=== PATIENT | female | born 1940 | race Caucasian/White ===

== ENCOUNTER → 2023-11-22 09:46 | Outpatient (REF) | payer MEDICARE, OTHER, SELFPAY | LOC: RAD 09:46 | PROVIDERS: ATTENDING PHYSICIAN Physician Assistant; FAMILY PHYSICIAN Internal Medicine | DX: Z13.820 Encounter for screening for osteoporosis (principal); M81.0 Age-related osteoporosis without current pathological fracture | CPT/HCPCS: 77080 ==

== ENCOUNTER → 2023-12-03 14:22 | Outpatient (REF) | payer MEDICARE, OTHER, SELFPAY | LOC: RAD 14:22 | PROVIDERS: ATTENDING PHYSICIAN Physician Assistant | DX: M25.561 Pain in right knee (principal); M17.11 Unilateral primary osteoarthritis, right knee | CPT/HCPCS: 73564 ==

== ENCOUNTER → 2023-12-06 08:57 | Outpatient (REF) | payer MEDICARE, OTHER, SELFPAY | LOC: PAVMRI 08:57 | PROVIDERS: ATTENDING PHYSICIAN Physician Assistant | DX: M25.561 Pain in right knee (principal); G89.29 Other chronic pain; R26.9 Unspecified abnormalities of gait and mobility | CPT/HCPCS: 73721 ==

== ENCOUNTER → 2024-06-02 09:50 | Outpatient (REF) | payer MEDICARE, OTHER, SELFPAY ==
[2024-06-02 12:06] LABS: Blood Urea Nitrogen 33 mg/dl (7-17); Calcium 10.9 mg/dl (8.4-10.2); Carbon Dioxide 25 mmol/L (22-30); Glucose 89 mg/dl (70-99); Potassium 5.5 mmol/L (3.5-5.1); Sodium 138 mmol/L (135-145); eGFR 45.19
[2024-06-02 12:12] LABS: Chloride 100 mmol/L (98-107)
== END ==
LOC: REG 09:50
PROVIDERS: ATTENDING PHYSICIAN Family Medicine; FAMILY PHYSICIAN Physician Assistant
DX: E87.5 Hyperkalemia (principal)
CPT/HCPCS: 36415; 80048

== ENCOUNTER → 2024-06-06 06:49 | Outpatient (REF) | payer MEDICARE, OTHER, SELFPAY ==
[2024-06-06 08:45] LABS: Blood Urea Nitrogen 29 mg/dl (7-17); Calcium 9.9 mg/dl (8.4-10.2); Carbon Dioxide 26 mmol/L (22-30); Chloride 102 mmol/L (98-107); Glucose 93 mg/dl (70-99); Potassium 5.4 mmol/L (3.5-5.1); Sodium 140 mmol/L (135-145); eGFR 45.19
== END ==
LOC: REG 06:49
PROVIDERS: ATTENDING PHYSICIAN Physician Assistant; OTHER PHYSICIAN Internal Medicine Cardiovascular Disease
DX: E87.5 Hyperkalemia (principal)
CPT/HCPCS: 36415; 80048

== ENCOUNTER → 2024-08-05 10:35 | Outpatient (REF) | payer MEDICARE, OTHER, SELFPAY ==
[2024-08-05 11:33] LABS: Osmolality Urine 935 mOsm/kg (300-900)
[2024-08-05 11:43] LABS: Osmolality Serum 304 mOsm/kg (275-300)
[2024-08-05 11:44] LABS: Albumin 5.1 g/dl (3.5-5.0); Blood Urea Nitrogen 29 mg/dl (7-17); Calcium 10.8 mg/dl (8.4-10.2); Carbon Dioxide 27 mmol/L (22-30); Chloride 101 mmol/L (98-107); Glucose 91 mg/dl (70-99); Phosphorus 3.9 mg/dl (2.5-4.5); Potassium 4.6 mmol/L (3.5-5.1); Sodium 140 mmol/L (135-145); eGFR > 60.00
[2024-08-08 09:44] LABS: Aldosterone, Serum 7.1 ng/dL; Aldosterone/Renin Activ Ratio 6.4 ratio (<=25.0); Renin Activity Results 1.1 ng/mL/hr
== END ==
LOC: REG 10:35
PROVIDERS: ATTENDING PHYSICIAN Specialist; FAMILY PHYSICIAN Family Medicine
DX: E87.5 Hyperkalemia (principal)
CPT/HCPCS: 36415; 80069; 82088; 83930; 83935; 84133; 84244

== ENCOUNTER 2024-08-18 15:05 | Inpatient (IN) | payer MEDICARE, OTHER, SELFPAY ==
[2024-08-18 12:55] VITALS: BP 196/60
--- NOTE | 2024-08-18 13:45 | CON.NEURO ---
Consultation
Order
Date of Consultation: 08/18/24
Requesting Provider: Arturo Chi MD
Reason for Consult: Stroke
Neurology Consultation Note.
HPI: This is an 84-year-old RH woman who presented to [facility] on 08/18/2024 with motor deficits, confusion and abnormal MRI
The patient has had left face and leg weakness started around 3:49 AM yesterday morning. She initially felt no different but sent some unusual text messages to family members. Later that day, she experienced fatigue and exhibited unusual behavior,
including forgetting her phone and purse, leaving keys in the ignition, and lights on. In the evening, while going to dinner, her son noticed left-sided facial weakness, which the patient was unaware of. This morning, the patient reported shakiness
and an odd feeling in her left leg. She states she 'didn't feel normal' and knew something was wrong. The patient was evaluated by her primary care physician, who ordered stat CT and blood work. Following these tests, the patient was directed to the
ER.
ER VS: 196/60, 54�48, afebrile.
EKG: Sinus bradycardia at 49, QTc Int : 401 ms
PDMP:Hydrocodone-Acetamin 5-325 Mg 30 tablets filled in on 07/14/2024, 06/19/2024.
Labs: Glucose�100, normal sodium, WBCs, creatinine�1.0
CT head wo contrast-.3 cm right sided subacute lacunar infarct involving the head of the caudate, anterior limb of the internal capsule and lentiform nucleus
The patient states that she has been compliant with aspirin 81 mg 3 times a week. Higher doses caused excessive cutaneous hemorrhages in the past.
PMH: HTN, DLP, OA, MVR, AVR, vitamin D deficiency, BL SNHL
PSH:R TKA multiple brain biopsy, bilateral cataract surgery left knee meniscal repair,
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
FH:CAD
All:PNC, tetanus, high doses of aspirin�subcutaneous hemorrhages
ROS: Constitutional: Negative. Negative for chills, fever and unexpected weight change.
HENT: Positive for hearing impairment
Eyes: Negative. Negative for photophobia, pain and visual disturbance.
Respiratory: Positive for dyspnea on exertion
Cardiovascular: Negative for chest pain, palpitations and leg swelling.
Gastrointestinal: Negative for abdominal pain and vomiting.
Endocrine: Negative. Negative for cold intolerance.
Genitourinary: Negative for dysuria, flank pain and urgency.
Musculoskeletal: Negative for back pain, gait problem, neck pain and neck stiffness.
Skin: Negative for rash.
Allergic/Immunologic: Negative. Negative for immunocompromised state.
Neurological: Positive for confusion, left-sided weakness
Psychiatric/Behavioral: Negative for behavioral problems, confusion and hallucinations.
General: Well developed. In no acute distress.
Cardio: Regular rate and rhythm without murmur. Extremities are without cyanosis or edema.
Neuro:
Mental Status: Alert, oriented to person, place, and date. Impaired attention and comprehension (partially due to poor hearing) Follows complex requests across the midline. Comprehension, naming, and repetition intact. Slow speech
Cranial Nerves: Pupils are equally round, surgical. EOMs full. Visual ramirez full to confrontation. No ptosis. No nystagmus. Left facial upper motor neuron weakness. Poor hearing AU. The palate elevated well. SCMs and traps 5/5. Tongue
midline. No dysarthria.
Motor: Normal bulk and tone. No pronator or arm drift. Strength 5/5 throughout, except for left triceps 4 out of 5, iliopsoas�5- out of 5. No clonus.
Reflexes: Positive grasp bilaterally.
Sensory: No extinction to DSS
Coordination: No dysmetria or tremor.
Gait: deferred
Assessment and Plan:
I. Acute right caudate, IC, lentiform nucleus stroke. Likely etiology�vascular microangiopathy from aging, hypertension.
II. Hypertensive emergency
III. Vascular encephalopathy.
-Continue Telemetry monitoring
-Aspiration precautions
-Cautious lowering of BP by approximately 15 % during the first 24 hours is SBP >220 mmHg or diastolic blood pressure >120 mmHg
-Restart antihypertensive medications during if BP>140/90 mmHg who are neurologically stable in 24 to 48 hours after stroke onset
-Switch aspirin to Plavix 75 mg once a day
-TTE
-Lipitor 40 mg QHS.
-Please check HbA1C, LDL.
-PT.
-DVT prophylaxis.
I personally reviewed all radiology and labs along with past medical records pertinent to current medical problems. Total time spent in patient care is 60 minutes.
Thank you for allowing us to participate in the care of this patient. We will continue to follow. Please do not hesitate to contact us with any questions or concerns.
Subjective/Objective
Subjective Data
Date of Service: August 18, 2024
Objective Data
Vital Signs
Temp Pulse Resp BP Pulse Ox
36.6 C 54 18 196/60 99
08/18/24 12:55 08/18/24 12:55 08/18/24 12:55 08/18/24 12:55 08/18/24 12:55
Patient Allergies
Penicillins Allergy (Unknown, Verified 08/18/24 13:03)
Rash
Vital Signs and Labs
-
Vital Signs and Labs:
Vital Signs
Temp Pulse Resp BP Pulse Ox
36.6 C 63 14 175/80 99
08/18/24 12:55 08/18/24 15:59 08/18/24 15:59 08/18/24 14:18 08/18/24 15:15
Lab Results
08/18/24 13:32
08/18/24 13:32
PT 12.8 Sec (11.4-14.6) 08/18/24 14:47
INR 0.93 08/18/24 14:47
APTT 30.6 Sec (23.4-35.0) 08/18/24 14:47
Sodium Cancelled 08/18/24 13:32
Potassium Cancelled 08/18/24 13:32
BUN Cancelled 08/18/24 13:32
Glucose Cancelled 08/18/24 13:32
Calcium Cancelled 08/18/24 13:32
Home Medications
-
Home Medications
Linseed Capsules 1 cap PO DAILY 08/18/24
acetaminophen 325 mg tablet (Tylenol) 650 mg PO BID 08/18/24
aspirin 81 mg tablet,delayed release 81 mg PO Q48H 08/18/24
cholecalciferol (vitamin D3) 25 mcg (1,000 unit) tablet (Vitamin D3) 25 mcg PO DAILY 08/18/24
hydrocodone 5 mg-acetaminophen 325 mg tablet 0.5 tab PO DAILYPRN PRN 1 hour prior to pt therapy 08/18/24
omega 3-tlb-dzs-fish oil 1,000 mg (120 mg-180 mg) capsule (Fish Oil) 1 cap PO DAILY 08/18/24
therapeutic multivitamin 1 tab PO DAILY 08/18/24
[2024-08-18] MEDS: ASPIRIN 325 MG PO (13:55)
[2024-08-18] MEDS: PLAVIX 75 MG PO (13:55)
--- NOTE | 2024-08-18 14:00 | ED.CVA ---
History of Present Illness
General
Chief Complaint: CVA/TIA Symptoms
Source: patient, family and physician
Time Seen by Provider: 08/18/24 13:31
Onset of Stroke Symptoms
Onset of symptoms known: No
Date of onset of symptoms: 08/16/24
Time pt last seen normal is known: No
History of Present Illness
History of Present Illness:
84-year-old female with past medical history of mild hypertension managed with lifestyle modifications presents to the emergency department from outpatient CT scan after patient was found to have a 3.3 cm subacute nonhemorrhagic lacunar infarct on
the right, had the CT scan done because family had noticed late Sunday morning into Sunday patient started with confusion and then Sunday noticed a left-sided facial droop and at the primary care today felt as if the left upper and left lower
extremity were little bit weaker compared to the right. Patient states that she was unaware of any of the symptoms. Family states that around 3 AM multiple family members had noticed a text with what appeared to be abnormal speech send by the
patient who had no recollection of sending the text message and patient seemed very forgetful on Sunday morning that is not typical of her usual self. Family history was noted for maternal grandmother having a stroke. Social history
noncontributory. Patient does live with her son.
Past History
Past History
ED Past Medical History: Valvular disease
ED Past Surgical History: Cholecystectomy and Orthopedic
Social History
Tobacco: Non-smoker
Alcohol: None
Drug: None
Personal:
Living: with family
Review of Systems
Review of Systems
All Other Systems: ROS reviewed and negative except as documented in HPI and ROS
Phy Exam
Physical Exam
Physical Exam:
GENERAL: Alert , in no apparent distress
EYE: clear conjunctiva, pupils 3 mm bilateral, no visual field cuts, gross vision intact
NECK: Supple, no bruit
ENT: o/p clr, mmm.
CARDIAC: Regular rate and rhythm, systolic murmur left sternal border.
LUNGS: Clear breath sounds bilaterally, no acute respiratory distress, no wheezes/rales/rhonchi
ABDOMEN: Soft, without focal tenderness, no r/g, no cvat
NEUROLOGICAL: Alert and oriented, mild left-sided facial droop with mild dysarthria, 4+ out of 5 left upper and lower extremity strength compared to the right, no ataxia
SKIN: Warm and dry, skin intact.
MUSCULOSKELETAL: No edema, well perfused.
PSYCH: Normal and appropriate interaction.
Scores
NIH Stroke Score
Level of Consciousness: 0 - Alert
LOC Questions: 0-Answers both correctly
LOC Commands: 0-Performs both correctly
Best Horizontal Gaze: 0-Normal
Visual Lambert: 0=Normal, no visual loss
Facial Palsy: 1=Minor paralysis
Motor - Right Arm: 0=No drift 10 seconds
Motor - Left Arm: 0=No drift 10 seconds
Motor - Right Le-No drift 5 seconds
Motor - Left Le-No drift 5 seconds
Limb Ataxia: 0-Absent
Sensation: 0-Normal
Best Language: 1-Mild aphasia
Dysarthria: 0-Normal
Extinction and Inattention: 0-No abnormality
Total Score:: 2
Thrombolytic Contraindication
Inclusion and Exclusion criteria reviewed: Yes
Reasons for NON-Tx with Thrombolytics ABSOLUTE Exclusions: Greater than 4.5 hrs from onset of sxs
Course
Orders/Labs/Results
Orders:
Orders
08/18/24 13:33
Electrocardiogram (*1) Stat
Reason for Study: Other
Other Reason for Exam: neuro symptoms
EKG- Treatment ONCE
08/18/24 13:36
CT Head & Neck Angio W/wo IV Urgent
Comment:
Reason For Exam: LUE/LLE weakness, left facial droop
Aspirin 325 mg PO NOW STA
Clopidogrel Bisulfate [Plavix] 75 mg PO NOW STA
08/18/24 14:22
Admit/Transfer Patient As Directed
Co-Sign Provider:
Level of Care: Inpatient admission
Assign to:: Telemetry
Physician / Group: [email or web address]
Diagnosis: Subacute nonhemorrhagic lacunar infarct CVA @ Rt Basal ganglia
Reason for Telemetry: CVA/TIA
Date to Stop Telemetry: 08/21/24
Time to Stop Telemetry: 11:00
Reason for Hospitalization: Subacute nonhemorrhagic lacunar infarct CVA @ Rt Basal ganglia
Expected length of stay greater than two midnights?: Yes
ELOS- Estimated Length of Stay in days: 3
I certify the patient meets the requirements for IP care: Yes
08/18/24 14:23
Code Status As Directed
Resuscitation Status: Full Code
08/18/24 14:47
PTT Urgent
Prothrombin Time Urgent
Troponin I Urgent
08/21/24 11:00
DC Protocol for Telemetry ONCE
08/18/24 13:32
08/18/24 13:32
Vital Signs
Initial and Last Documented VS:
Initial Vital Signs
Temp Pulse Resp BP Pulse Ox
97.8 F 54 18 196/60 99
08/18/24 12:55 08/18/24 12:55 08/18/24 12:55 08/18/24 12:55 08/18/24 12:55
Last Documented Vital Signs
Temp Pulse Resp BP Pulse Ox
97.8 F 50 16 175/80 95
08/18/24 12:55 08/18/24 14:15 08/18/24 14:15 08/18/24 14:18 08/18/24 14:54
MDM/Problems Addressed
Differential Diagnosis Includes:
CVA, hypertensive urgency/emergency, electrolyte derangement
MDM/Problems Addressed:
84-year-old female being sent to the emergency department from outpatient CT scan after being found to have a lacunar infarct. Symptoms started at the 30 hours ago. Patient is not a tPA/TNK candidate. Will discuss case with neurology. Plan for
aspirin and Plavix. Labs ordered as above. Plan for admission
Chronic conditions affecting care: HTN
*Radiology
Radiology exam reviewed: radiology read reviewed
*Pulse Oximetry
Patient hypoxic: no
*Photographic Supervisor Interpretation
Rate: normal
Rhythm: sinus
*Critical Care Note
Total Time (30-74mins, 75-104mins- exclusive of procedures): Not Applicable
Data Reviewed
Review of Other/Old Records Reveals: Records and Radiology Studies
Patient Management
Discussion with other providers: Hospitalist and Manager Statistical Programming
Escalation/DeEscalation of care consider admission/obs:
Case discussed with neurology who requests CTA of the head and neck to be ordered. Agree with plan for 325mg of aspirin and 75 mg of Plavix. Hospitalist team is also aware and accepts for continued evaluation and treatment.
ED Attending Note
-
Portions of this chart may have been created with voice recognition software.� Occasional wrong word or��sound alike� substitutions may have occurred due to the inherent limitations of voice recognition software.
Discharge Plan
Departure
Patient Disposition: Admit
Date of Disposition: 08/18/24
Time of Disposition: 14:00
Presentation/result/management discussed w/ accepting MD/DO: Hospitalist
Discharge Problem:
Acute cerebrovascular accident (CVA)
Interventions
Interventions:
*Risk Screen - Suicide Last Done: 08/18/24 14:48
*General Assessment Last Done: 08/18/24 14:48
*Neglect/Abuse Screening Last Done: 08/18/24 14:50
*ED COVID-19 Vaccine History Last Done: 08/18/24 14:48
ED- Pulmonary Assessment Last Done: 08/18/24 14:54
ED- Neurological Assessment Last Done: 08/18/24 14:52
ED- Cardiac Assessment Last Done: 08/18/24 14:42
ED Swallowing Screen Last Done: 08/18/24 14:42
--- NOTE | 2024-08-18 14:16 | HPS.HSE ---
Family Physician
-
Family Physician: Lucie Caro
Chief Complaint
-
woke up confused and Lt facia droop
History of Present Illness
84F No prior admission to woke up yesterday morning with confusion. Also noted Lt facial droop
OP HCT showed Rt BG non hemorrhagic stroke
Sent to ER for further w/u
Noted BP 195/60 upon arrival
Initiated ASA and Plavix at ER
S/P Rt TKA in Jun 2024
Currently on baby ASA since
Progressibg well with OP Rehab
ROS
No BLACK
Medical History
Past Medical History
Past Medical History: Reports Other
Past Surgical History: Reports Other
Social History
Unable to obtain full social history at this time due to: Other
Tobacco: Other
Family History
Family History: Not pertinent
Allergies / Home Medications
Allergies reflects when Allergies were last updated in [facility].
Home Medications with original date entered in [facility]
Allergy/Medication List:
Allergies
Allergy/AdvReac Type Severity Reaction Status Date / Time
Penicillins Allergy Unknown Rash Verified 08/18/24 13:03
If medication reconciliation has not been performed, why?: Medication List N/A
Review of Systems
-
Constitutional: Reports No Symptoms
EENT: Reports No Symptoms
Respiratory: Reports No Symptoms
Cardiac: Reports No Symptoms
Abdomen/GI: Reports No Symptoms
: Reports No Symptoms
Musculoskeletal: Reports No Symptoms
Skin: Reports No Symptoms
Neurological: Reports See HPI
Endocrine: Reports No Symptoms
Hematologic/Lymphatic: Reports No Symptoms
Psych: Reports No Symptoms
Physical Exam
Vital Signs
Vital Signs
Temp Pulse Resp BP Pulse Ox
97.8 F 54 18 196/60 99
08/18/24 12:55 08/18/24 12:55 08/18/24 12:55 08/18/24 12:55 08/18/24 12:55
Physical Exam
General: Well Developed, Well Nourished and No Apparent Distress
HEENT: NormoCephalic, Moist mucous membranes and Atraumatic
Respiratory: Clear
Cardiac: S1/S2 and Regular Rhythm; No Murmur or Rub
GI: Soft, Non Tender, Non Distended and Normal Bowel Sounds; No Organomegaly
Rectal: Deferred by Provider
Musculoskeletal: No Clubbing, No Cyanosis and No Edema
Skin: No Rash
Neuro: Nonfocal/grossly intact
Data Reviewed
-
CT Scan: Report Reviewed by me
Impression/Plan
-
Reviewed VS: afebrile, BP 195/60 HR 55
Data: pending
EKG: pending
Outpatient HCT:
3.3 cm right sided subacute nonhemorrhagic lacunar infarct involving the head of the caudate, anterior limb of the internal capsule and lentiform nucleus on the right.
Pending H & N CTA
No prior hospitalist admission:
ASSESSMENT & PLAN
Pending Rx reconciliation
Subacute subacute nonhemorrhagic lacunar infarct CVA @ Rt Basal ganglia
Asso with acute confusional state AMS
- out of TPA window due to onset was likely late Sunday night/Sunday morning.
- pending CTA head/neck and starting ASA/Plavix.
- ASA/Plavix
- Start atorvastatin 40 qpm
- EKG
- ECHO in AM
- CVA evaluation
- Brain MRI
- Neuro consulted
Permissive HTN ( SBP 185, DBP 110) due to acute /SA stroke
- Of note. Normally manual BP measurement is more accurate in her case per son
- To measure BP manually
- add IV Hydralazine 10mg q6h prn for SBP > 185, DBP > 110
S/P Rt TKA in Jun 2024
Currently on baby ASA since
- Progressing well with OP Rehab
DVT Px: SCD
Code: Full code
IP TLM
[2024-08-18 14:18] VITALS: BP 175/80
[2024-08-18 15:14] LABS: APTT 30.6 Sec (23.4-35.0); INR 0.93; PT 12.8 Sec (11.4-14.6)
[2024-08-18 15:30] LABS: Troponin I < 0.012 ng/ml
[2024-08-18] MEDS: LIPITOR 40 MG PO (18:26)
[2024-08-18 19:25] VITALS: BMI 27.4
[2024-08-18 23:46] VITALS: BP 162/58
[2024-08-19] VITALS (8 sets, daily range): BP systolic 149–170; BP diastolic 44–57; PULSE 51; O2SAT 99
[2024-08-19 06:27] LABS: Hematocrit 33.7 % (37.0-47.0); Hemoglobin 11.1 g/dL (12.0-16.0); Mean Corp Hgb Conc. 32.9 g/dL (33.0-37.0); Mean Corpuscular Hgb 30.3 pg (27.0-31.0); Mean Corpuscular Volume 92.1 fL (81.0-99.0); Mean Platelet Volume 10.1 fL (7.4-10.4); Platelet Count 225 10^3/uL (130-400); Red Blood Cell Count 3.66 10^6/uL (4.20-5.40); Red Cell Dist. Width 12.9 % (11.5-14.5); White Blood Cell Count 5.3 10^3/uL (4.8-10.8)
[2024-08-19 06:57] LABS: ALT (SGPT) 15 U/L (0-35); AST (SGOT) 22 U/L (14-36); Albumin 3.6 g/dl (3.5-5.0); Alkaline Phosphatase 50 U/L (38-126); Blood Urea Nitrogen 34 mg/dl (7-17); Calcium 9.6 mg/dl (8.4-10.2); Carbon Dioxide 25 mmol/L (22-30); Chloride 106 mmol/L (98-107); Estimated Creatinine Clearance 34 ml/min; Glucose 95 mg/dl (70-99); HDL Cholesterol 46 mg/dl; LDL Cholesterol, Calculated 93 mg/dl; Potassium 4.6 mmol/L (3.5-5.1); Sodium 138 mmol/L (135-145); Total Bilirubin 0.6 mg/dl (0.2-1.3); Total Cholesterol 157 mg/dl (50-199); Total Protein 5.8 g/dl (6.3-8.2); Triglyceride 94 mg/dl (10-149); Very Low Density Lipoprotein 18 mg/dl (0-30); eGFR > 60.00
--- NOTE | 2024-08-19 08:04 | W.PN.HOSP.TC ---
Today's Communication/Plan
-
cont Plavix as per Neuro
Blood pressure control
Hydralazine prn
Low dose Amlodipine with holding parameters started
PT/OT
statin
Assessment / Plan
Assessment / Plan
Physical Exam
General: Well Developed, Well Nourished and No Apparent Distress
HEENT: NormoCephalic, Moist mucous membranes and Atraumatic
Respiratory: Clear
Cardiac: S1/S2 and Regular Rhythm; No Murmur or Rub
GI: Soft, Non Tender, Non Distended and Normal Bowel Sounds; No Organomegaly
Musculoskeletal: No Clubbing, No Cyanosis and No Edema
Skin: No Rash
Neuro: AOx3. Visible left sided facial droop, mild. Intact immediate recall and delayed recall. Finger to nose and spangler to heel tests wnl.
84F Rt TKA Jun 2024 HTN here for stroke evaluation/treatment
Subacute subacute nonhemorrhagic lacunar infarct CVA @ Rt Basal ganglia
- out of TPA window
- CT head appreciated 3.3 cm right sided subacute nonhemorrhagic lacunar infarct involving the head of the caudate, anterior limb of the internal capsule and lentiform nucleus on the right
- CTA head/neck appreciated no significant carotid stenosis b/l
- empirically started on ASA/Plavix switched to Plavix monotherapy as per neuro d/t concern ASA intolerance
- Start atorvastatin 40 qpm, cont
- ECHO appreciated EF 60-65% Stage II diastolic dysfunction
Brain MRI appreciated
-3.1 cm acute ischemic infarct rt caudate nucleus, rt internal capsule, and right basal ganglia
-small chronic infarcts both cerebellar hemispheres
Neuro consult appreciated
HTN
-completed permissive HTN
-per patient, she was previously on lisinopril since discontinued due to Hyperkalemia
-started low dose Amlodipine 2.5 mg BID w/ holding parameters
-cont hydralazine IV prn (parameters adjusted for tighter blood pressure control following completion permissive htn)
S/P Rt TKA in Jun 2024
DVT Px: SCD
Code: Full code
IP TLM
Discussed with patient and patient's son Jamarcus
I spent a total of 50 minutes with the patient or on the floor. More than 50% of this time involved counseling and coordination of care.
Anticipated Discharge: Within 24 hours
Subjective/Interval History
-
Date of Service: August 19, 2024
No acute distress sitting up comfortably in bed. AOx3 conversant coherent no significant aphasia noted in conversation. Mild left facial droop present.
Objective Data
-
Labs:
Laboratory Results
08/18/24 08/19/24
22:30 05:35
WBC 5.3
Hgb 11.1 L
Hct 33.7 L
Plt Count 225
Sodium Cancelled 138
Potassium Cancelled 4.6
Chloride Cancelled 106
Carbon Dioxide Cancelled 25
BUN Cancelled 34 H
Creatinine Cancelled 0.9
Glucose Cancelled 95
Calcium Cancelled 9.6
Total Bilirubin Cancelled 0.6
AST Cancelled 22
ALT Cancelled 15
Alkaline Phosphatase Cancelled 50
Vital Signs:
Vital Signs
Temp Pulse Resp BP Pulse Ox
97.6 F 47 16 158/52 96
08/19/24 04:50 08/19/24 04:50 08/19/24 04:50 08/19/24 04:50 08/19/24 04:50
[2024-08-19] MEDS: LOW STRENGTH ASPIRIN 81 MG PO (10:06)
[2024-08-19] MEDS: PLAVIX 75 MG PO (10:06)
[2024-08-19 10:25] LABS: Glycohemoglobin (HgbA1c) 4.9 % (4.0-5.6)
--- NOTE | 2024-08-19 12:39 | W.PN.NEURO.1 ---
Today's Communication / Plan
-
.
Subjective/Objective
Subjective Data
Date of Service: August 19, 2024
Neurology follow-up note.
Ms. Farmer reports no complaints. She has been mildly hypertensive and afebrile. No new symptoms since admission.
TTE-was reportedly done in the morning, report is pending.
LDL 93
PMH: HTN, DLP, OA, MVR, AVR, vitamin D deficiency, BL SNHL
PSH:R TKA multiple brain biopsy, bilateral cataract surgery left knee meniscal repair,
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
FH:CAD
All:PNC, tetanus, high doses of aspirin�subcutaneous hemorrhages
ROS: Constitutional: Negative. Negative for chills, fever and unexpected weight change.
HENT: Positive for hearing impairment
Eyes: Negative. Negative for photophobia, pain and visual disturbance.
Respiratory: Positive for dyspnea on exertion
Cardiovascular: Negative for chest pain, palpitations and leg swelling.
Gastrointestinal: Negative for abdominal pain and vomiting.
Endocrine: Negative. Negative for cold intolerance.
Genitourinary: Negative for dysuria, flank pain and urgency.
Musculoskeletal: Negative for back pain, gait problem, neck pain and neck stiffness.
Skin: Negative for rash.
Allergic/Immunologic: Negative. Negative for immunocompromised state.
Neurological: Positive for confusion, left-sided weakness
Psychiatric/Behavioral: Negative for behavioral problems, confusion and hallucinations.
General: Well developed. In no acute distress.
Cardio: Regular rate and rhythm without murmur. Extremities are without cyanosis or edema.
Neuro:
Mental Status: Alert, oriented to person, place, month, year, not to date. Impaired attention and comprehension (partially due to poor hearing) Follows complex requests across the midline. Comprehension, naming, and repetition intact. Slow speech
Cranial Nerves: Pupils are equally round, surgical. EOMs full. Visual ramirez full to confrontation. No ptosis. No nystagmus. Left facial upper motor neuron weakness. Poor hearing AU. The palate elevated well. SCMs and traps 5/5. Tongue
midline. No dysarthria.
Motor: Normal bulk and tone. No pronator or arm drift. Strength 5/5 throughout, except for left triceps 4 out of 5, iliopsoas�5- out of 5. No clonus.
Reflexes: Positive grasp bilaterally.
Sensory: No extinction to DSS
Coordination: No dysmetria or tremor.
Gait: deferred
Assessment and Plan:
I. Acute right caudate, IC, lentiform nucleus stroke. Likely etiology�vascular microangiopathy from aging, hypertension.
II. Hypertensive emergency
III. Vascular encephalopathy.
-Continue Telemetry monitoring
-Blood pressure goal�normotension
-Continue Plavix 75 mg once a day with close platelet monitoring
-Will follow brain MRI and TTE results
-Continue Lipitor 40 mg QHS.
-No driving until cleared by neurology
-PT.
-DVT prophylaxis.
-Outpatient neurology follow-up
-The case was discussed with patient's son
I personally reviewed all radiology and labs along with past medical records pertinent to current medical problems. Total time spent in patient care is 35 minutes.
Thank you for allowing us to participate in the care of this patient. Please do not hesitate to contact us with any questions or concerns.
Objective Data
Vital Signs
Temp Pulse Resp BP Pulse Ox
36.6 C 50 18 164/45 100
08/19/24 08:11 08/19/24 08:11 08/19/24 08:11 08/19/24 08:11 08/19/24 08:11
Lab Results
08/19/24 05:35
08/19/24 05:35
PT 12.8 Sec (11.4-14.6) 08/18/24 14:47
INR 0.93 08/18/24 14:47
APTT 30.6 Sec (23.4-35.0) 08/18/24 14:47
Sodium 138 mmol/L (135-145) 08/19/24 05:35
Potassium 4.6 mmol/L (3.5-5.1) 08/19/24 05:35
BUN 34 mg/dl (7-17) H 08/19/24 05:35
Glucose 95 mg/dl (70-99) 08/19/24 05:35
Calcium 9.6 mg/dl (8.4-10.2) 08/19/24 05:35
LDL Cholesterol, Calc 93 mg/dl 08/19/24 05:35
Patient Allergies
Penicillins Allergy (Verified 08/18/24 16:51)
Rash
Vital Signs and Labs
-
Vital Signs and Labs:
Vital Signs
Temp Pulse Resp BP Pulse Ox
36.6 C 50 18 164/45 100
08/19/24 08:11 08/19/24 08:11 08/19/24 08:11 08/19/24 08:11 08/19/24 08:11
Lab Results
08/19/24 05:35
08/19/24 05:35
PT 12.8 Sec (11.4-14.6) 08/18/24 14:47
INR 0.93 08/18/24 14:47
APTT 30.6 Sec (23.4-35.0) 08/18/24 14:47
Sodium 138 mmol/L (135-145) 08/19/24 05:35
Potassium 4.6 mmol/L (3.5-5.1) 08/19/24 05:35
BUN 34 mg/dl (7-17) H 08/19/24 05:35
Glucose 95 mg/dl (70-99) 08/19/24 05:35
Calcium 9.6 mg/dl (8.4-10.2) 08/19/24 05:35
LDL Cholesterol, Calc 93 mg/dl 08/19/24 05:35
Medications
-
Medications:
Generic Name Dose Route Start Last Admin
Trade Name Freq PRN Reason Stop Dose Admin
Acetaminophen 650 mg 08/18/24 19:44
Acetaminophen 650 Mg Rectal Suppository RECTAL 09/15/24 19:43
Q4HPRN PRN
BLACK, mild pain, or temp >100.4F
Acetaminophen 650 mg 08/18/24 19:44
Acetaminophen 325 Mg Tablet PO 09/15/24 19:43
Q4HPRN PRN
BLACK, mild pain, or temp >100.4F
Aspirin 81 mg 08/19/24 08:00 08/19/24 10:06
Aspirin 81 Mg Chewable Tablet PO 09/16/24 07:59 81 mg
DAILY GREGG Administration
Atorvastatin Calcium 40 mg 08/18/24 18:00 08/18/24 18:26
Atorvastatin (Lipitor) 40 Mg Tablet PO 09/15/24 17:59 40 mg
QPM GREGG Administration
Clopidogrel Bisulfate 75 mg 08/19/24 08:00 08/19/24 10:06
Clopidogrel 75 Mg Tablet PO 09/16/24 07:59 75 mg
DAILY GREGG Administration
Hydralazine HCl 10 mg 08/18/24 19:44
Hydralazine 20 Mg/Ml Vial IV 09/15/24 19:43
Q6HPRN PRN
SBP > 185, DBP > 110
Sodium Chloride 0 flush 08/18/24 17:00
Sodium Chloride 0.9% (Flush) Syringe IV 09/15/24 16:59
PER PROTOCOL GREGG
Home Medications
-
Home Medications
Linseed Capsules 1 cap PO DAILY 08/18/24
acetaminophen 325 mg tablet (Tylenol) 650 mg PO BID 08/18/24
aspirin 81 mg tablet,delayed release 81 mg PO Q48H 08/18/24
cholecalciferol (vitamin D3) 25 mcg (1,000 unit) tablet (Vitamin D3) 25 mcg PO DAILY 08/18/24
hydrocodone 5 mg-acetaminophen 325 mg tablet 0.5 tab PO DAILYPRN PRN 1 hour prior to pt therapy 08/18/24
omega 2-hre-tgd-fish oil 1,000 mg (120 mg-180 mg) capsule (Fish Oil) 1 cap PO DAILY 08/18/24
therapeutic multivitamin 1 tab PO DAILY 08/18/24
--- NOTE | 2024-08-19 13:37 | PTOTSP ---
ST Acute Care Evaluations
Pt currently presents with clinical signs of oral, pharyngeal, and esophageal phases that are WFL for PO intake. No overt s/s of penetration or aspiration observed at bedside.
Pt currently presents with moderate cognitive linguistic deficits as evidenced by her performance on the MOCA (total score = 14/30). Pt exhibits relative strengths in the areas of naming, abstraction, and orientation. Pt's areas of deficit/need of
support include visuospatial/executive functioning (2/5), attention (1/6), language (1/3), and delayed recall (0/5).
Recommendations:
- Continue with regular solids, thin liquids, meds as tolerated. No skilled dysphagia services warranted at this time.
- SUPERVISOR PAPER TESTING to continue to provide cognitive linguistic tx while admitted.
- Pt would benefit from continued cognitive linguistic tx upon d/c at next level of care (home health or OP).
--- NOTE | 2024-08-19 16:36 | CM ---
Patient seen bedside with son,
Patient lives with son in the in law suite in a 2 story home.
3 steps to enter.
Patient independent prior to admission.
Has equipment in the home, cane, RW and shower chair.
Patient seen by PT, recommendation is for home care.
PCP: Dr Caro
Pharmacy: [facility]
Plan: home with VN, son will transport.
[2024-08-19] MEDS: LIPITOR 40 MG PO (17:46)
--- NOTE | 2024-08-19 18:00 | PTCARENOTE ---
Gave patient stroke packet. Went over packet with patient and patient's son.
[2024-08-20] VITALS (7 sets, daily range): BP systolic 145–178; BP diastolic 41–72; PULSE 49–51; O2SAT 98; BMI 28.4
[2024-08-20] MEDS: TYLENOL 650 MG PO ×3 (00:46→23:41)
--- NOTE | 2024-08-20 02:40 | DOWNTIME ---
There was a [employer] Client Directory Clerk Downtime on 08/20/2024 from 0100 to 08/20/2023 at 0235 . Downtime documentation of patient's care, including medication administrations, has been reconciled in the electronic record per guidelines. Refer to the
patient's paper chart under the miscellaneous tab to see printed paper medication records and downtime forms.
--- NOTE | 2024-08-20 06:52 | W.PN.HOSP.TC ---
Today's Communication/Plan
-
Blood pressure Control
Automatic Blood Pressure readings to be repeated manually before use prn Hydralazine
cont Amlodipine with holding parameters
PT/OT
likely discharge tomorrow home with home services pending improvement in blood pressure control
Assessment / Plan
Assessment / Plan
Physical Exam
General: Well Developed, Well Nourished and No Apparent Distress
HEENT: NormoCephalic, Moist mucous membranes and Atraumatic
Respiratory: Clear
Cardiac: S1/S2 and Regular Rhythm; No Murmur or Rub
GI: Soft, Non Tender, Non Distended and Normal Bowel Sounds; No Organomegaly
Musculoskeletal: No Clubbing, No Cyanosis and No Edema
Skin: No Rash
Neuro: AOx3. Visible left sided facial droop, mild. Intact immediate recall and delayed recall. Finger to nose and spangler to heel tests wnl.
84F Rt TKA Jun 2024 HTN here for stroke evaluation/treatment
Subacute subacute nonhemorrhagic lacunar infarct CVA @ Rt Basal ganglia
- out of TPA window
- CT head appreciated 3.3 cm right sided subacute nonhemorrhagic lacunar infarct involving the head of the caudate, anterior limb of the internal capsule and lentiform nucleus on the right
- CTA head/neck appreciated no significant carotid stenosis b/l
- empirically started on ASA/Plavix switched to Plavix monotherapy as per neuro d/t concern ASA intolerance
- Start atorvastatin 40 qpm, cont
- ECHO appreciated EF 60-65% Stage II diastolic dysfunction
Brain MRI appreciated
-3.1 cm acute ischemic infarct rt caudate nucleus, rt internal capsule, and right basal ganglia
-small chronic infarcts both cerebellar hemispheres
Neuro consult appreciated
HTN
-completed permissive HTN
-per patient, she was previously on lisinopril since discontinued due to Hyperkalemia
-started low dose Amlodipine 2.5 mg BID w/ holding parameters, titrated up to 5 mg daily
-cont hydralazine IV prn (parameters adjusted for tighter blood pressure control following completion permissive htn)
-pressures to be repeated manually (if initial measurement was automatic) before using hydralazine
S/P Rt TKA in Jun 2024
DVT Px: SCD
Code: Full code
IP TLM
Likely discharge tomorrow home with home services pending improvement in blood pressure control
Discussed with patient and patient's son Jamarcus
I spent a total of 40 minutes with the patient or on the floor. More than 50% of this time involved counseling and coordination of care.
Anticipated Discharge: Within 24 hours
Subjective/Interval History
-
Date of Service: August 20, 2024
No acute distress sitting up comfortably in chair. Overall reports feeling well. Denies new acute issues at this time, including headache lightheadedness dizziness.
Objective Data
-
Vital Signs:
Vital Signs
Temp Pulse Resp BP Pulse Ox
98 F 47 16 148/44 95
08/20/24 03:32 08/20/24 03:32 08/20/24 03:32 08/20/24 03:32 08/20/24 03:32
I&O
08/18/24 08/19/24 08/20/24
06:59 06:59 06:59
Intake Total 1200 / 1200
Balance 1200 / 1200
[2024-08-20] MEDS: NORVASC 2.5 MG PO ×2 (08:52→19:30)
[2024-08-20] MEDS: PLAVIX 75 MG PO (08:52)
[2024-08-20] MEDS: APRESOLINE 10 MG IV (09:55)
[2024-08-20] MEDS: LIPITOR 40 MG PO (17:33)
[2024-08-21 02:55] VITALS: BP 130/42
--- NOTE | 2024-08-21 04:32 | PTCARENOTE ---
This RN called and gave report to Leonardo IBARRA on . All questions answered at this time. Patient to be transported in bed with belongings and chart.
--- NOTE | 2024-08-21 05:00 | TRANSFER ---
Pt transferred from 1 acute to 4[facility]. VSS, pt is AAOx3, bed alarm in place d/t high fall risk. NIH 2 on transfer. Bed in lowest position, call galeano within reach.
[2024-08-21 05:05] VITALS: BP 157/47
[2024-08-21 07:46] VITALS: BP 149/52
--- NOTE | 2024-08-21 07:59 | W.PN.HOSP.TC ---
Addendum entered and electronically signed by Angie Blanco MD 08/22/24 08:29:
cytotoxic edema as noted on brain MRI
Patient otherwise in no acute distress, clinically improving, AOx3, VSS, medically stable for discharge.
Original Note:
Today's Communication/Plan
-
discharge
Assessment / Plan
Assessment / Plan
Physical Exam
General: Well Developed, Well Nourished and No Apparent Distress
HEENT: NormoCephalic, Moist mucous membranes and Atraumatic
Respiratory: Clear
Cardiac: S1/S2 and Regular Rhythm; No Murmur or Rub
GI: Soft, Non Tender, Non Distended and Normal Bowel Sounds; No Organomegaly
Musculoskeletal: No Clubbing, No Cyanosis and No Edema
Skin: No Rash
Neuro: AOx3. Visible left sided facial droop, mild appears to be improving. Intact immediate recall and delayed recall. Finger to nose and spangler to heel tests wnl.
84F Rt TKA Jun 2024 HTN here for stroke evaluation/treatment
Subacute subacute nonhemorrhagic lacunar infarct CVA @ Rt Basal ganglia
- out of TPA window
- CT head appreciated 3.3 cm right sided subacute nonhemorrhagic lacunar infarct involving the head of the caudate, anterior limb of the internal capsule and lentiform nucleus on the right
- CTA head/neck appreciated no significant carotid stenosis b/l
- empirically started on ASA/Plavix switched to Plavix monotherapy as per neuro d/t concern ASA intolerance
- Start atorvastatin 40 qpm, cont
- ECHO appreciated EF 60-65% Stage II diastolic dysfunction
Brain MRI appreciated
-3.1 cm acute ischemic infarct rt caudate nucleus, rt internal capsule, and right basal ganglia
-small chronic infarcts both cerebellar hemispheres
Neuro consult appreciated recommended no driving
HTN
-completed permissive HTN
-per patient, she was previously on lisinopril since discontinued due to Hyperkalemia
-started low dose Amlodipine 2.5 mg BID w/ holding parameters, titrated up to 5 mg daily, tolerating well
-hydralazine IV prn
S/P Rt TKA in Jun 2024
DVT Px: SCD
Code: Full code
IP TLM
Medically stable for discharge home with home services and outpatient follow up recommendations.
Discussed with patient and patient's son Jamarcus
Total Time Preparing Discharge __40 minutes including examination of the patient, summary of the hospital stay, instructions for continuing care to all relevant caregivers; and preparation of discharge records, prescriptions, and referral
forms if necessary.
Anticipated Discharge: Today
Subjective/Interval History
-
Date of Service: August 21, 2024
no acute distress. Overall reports feeling well. Denies new acute issues including lightheadedness or headache. Looking forward to going home.
Objective Data
-
Vital Signs:
Vital Signs
Temp Pulse Resp BP Pulse Ox
97.8 F 53 18 149/52 96
08/21/24 07:46 08/21/24 07:46 08/21/24 07:46 08/21/24 07:46 08/21/24 07:46
I&O
08/20/24 08/21/24 08/22/24
06:59 06:59 06:59
Intake Total 1200 / 1200 300 / 300
Balance 1200 / 1200 300 / 300
[2024-08-21] MEDS: PLAVIX 75 MG PO (09:32)
[2024-08-21] MEDS: NORVASC 5 MG PO (09:32)
--- NOTE | 2024-08-21 10:44 | PN.CDI ---
CDI
- -
CDI:
Physician Documentation Request
Admit Date: 08/18/24 15:05
Dear Doctor Francis,
Please review the following and provide your response in the progress notes.
Clinical Indicators:
The diagnosis of cytotoxic edema was included in the signed Brain MRI.
Additional clinical indicators in the chart include:
Progress note 08/21, ' Brain MRI appreciated 3.1 cm acute ischemic infarct rt caudate nucleus, rt internal capsule, and right basal ganglia...'
Brain MRI ,' LARGE 3.1 cm ACUTE ISCHEMIC INFARCT in the RIGHT CAUDATE NUCLEUS, RIGHT INTERNAL CAPSULE, and RIGHT BASAL GANGLIA containing cytotoxic edema...'
Please indicate in your progress notes if you are in agreement that the above diagnosis is valid for this patient:
____ - Cytotoxic Edema is a valid diagnosis (Please include it in your progress notes)
____ - Cytotoxic Edema is not a valid diagnosis for this patient
____ - Other ( please specify)
Use of terms such as suspected, likely, concern for, or probable are acceptable for a diagnosis that is being evaluated, monitored or treated as if it exists and can be coded in the inpatient setting, when documented at the time of discharge.
Thank you,
Melissa Stewart RN
CDI Specialist
[place] [facility]
Please use your independent medical judgment in providing your response.
[2024-08-21 11:33] VITALS: BP 135/48
--- NOTE | 2024-08-21 12:55 | W.DCSUMMARY ---
Discharge Summary
Discharge Data
Date of Admission: 08/18/24
Date of Discharge: 08/21/24
-
Pending Results: No
Discharge Plan
-
Patient Disposition: Home with Home Care
Discharge Diagnosis/Procedures: Stroke
Hypertension
Condition: Fair
Diet: Low Cholesterol and 2 Gram Sodium
Activity: As tolerated and With Walker
Driving Restrictions: No driving
Bathing Restrictions: None
Activity Restrictions/Additional Instructions:
Please follow up with primary care provider in 1 week of discharge and follow up with Neurology in 1-2 months of discharge.
Amlodipine has been prescribed for hypertension.
It is recommended that you obtain a home blood pressure monitoring device (this is typically available in your nearby pharmacy store) and keep a daily log of your pressures at home. Review the log with your primary care provider in follow up for
further adjustment of your blood pressure medication as necessary. Also bring your blood pressure measuring device with you to compare measurements between your device and measurements obtained in doctor's office.
Plavix has been prescribed for stroke. This medication is replacing your home aspirin- please follow up with primary care provider and/or other healthcare provider involved in your care before considering to resume aspirin.
Atorvastatin, a cholesterol lowering medication, has also been prescribed to further reduce your risk of stroke.
Please take medications as prescribed/recommended and follow up with primary care provider and/or other healthcare provider involved in your care for refills and/or further adjustment to your medication regimen as necessary.
Referrals:
Davin Bird MD [Active] - in one to two months
Lucie Caro MD [Family Provider] - in one week
Prescriptions:
New
atorvastatin 40 mg Tablet
40 mg PO QPM Qty: 30 0RF
clopidogrel 75 mg Tablet
75 mg PO DAILY Qty: 30 0RF
amlodipine 5 mg Tablet
5 mg PO DAILY Qty: 30 0RF
Continued
acetaminophen [Tylenol] 325 mg Tablet
650 mg PO BID
hydrocodone-acetaminophen 5-325 mg Tablet
0.5 tab PO DAILYPRN PRN (Reason: 1 hour prior to pt therapy)
therapeutic multivitamin Tablet
1 tab PO DAILY
cholecalciferol (vitamin D3) [Vitamin D3] 25 mcg (1,000 unit) Tablet
25 mcg PO DAILY
omega 9-ztu-hug-fish oil [Fish Oil] 1,000 (120-180) mg Capsule
1 cap PO DAILY
Linseed Capsules
1 cap PO DAILY
Discontinued
aspirin 81 mg Tablet,Delayed Release (Dr/Ec)
81 mg PO Q48H
Discharge Orders:
Discharge Patient (As Directed); Ordered 08/21/24
Ordered By: Angie Blanco
Discharge Date and Time
Print Language: TURKISH
--- NOTE | 2024-08-21 14:08 | CM ---
Chart reviewed and patient is for discharge to home today. Patient is for home with visiting nurses, options reviewed with patient and kamari has selected [facility]
Plan; Home with [facility]
Report [phone]
== END 2024-08-21 15:40 | disposition home health service (06) | DRG 64 ==
LOC: 4 WEST ACU 15:05
PROVIDERS: Physician Assistant Medical; ADMITTING PHYSICIAN Internal Medicine; ATTENDING PHYSICIAN Internal Medicine; CONSULT PHYSICIAN Psychiatry & Neurology Neurology; EMERGENCY PHYSICIAN Emergency Medicine; FAMILY PHYSICIAN Family Medicine
DX: I63.81 Other cerebral infarction due to occlusion or stenosis of small artery (principal); G93.6 Cerebral edema; F05 Delirium due to known physiological condition; G81.94 Hemiplegia, unspecified affecting left nondominant side; I16.1 Hypertensive emergency; G93.49 Other encephalopathy; I10 Essential (primary) hypertension; Z96.651 Presence of right artificial knee joint; Z79.82 Long term (current) use of aspirin; Z88.0 Allergy status to penicillin; E55.9 Vitamin D deficiency, unspecified; Z87.891 Personal history of nicotine dependence; I34.0 Nonrheumatic mitral (valve) insufficiency; I34.81 Nonrheumatic mitral (valve) annulus calcification; R29.810 Facial weakness; Z82.3 Family history of stroke
CPT/HCPCS: 36415; 70450; 70496; 70498; 70551; 80053; 80061; 83036; 83615; 84484; 85025; 85027; 85610; 85730; 92523; 92610; 93005; 93306; 97112; 97116; 97129; 97162; 97166; 97530; 99285; Q9967

== ENCOUNTER → 2024-08-27 13:33 | Outpatient (REF) | payer MEDICARE, OTHER, SELFPAY ==
[2024-08-27 15:51] LABS: Albumin 4.4 g/dl (3.5-5.0); Blood Urea Nitrogen 26 mg/dl (7-17); Calcium 10.8 mg/dl (8.4-10.2); Carbon Dioxide 28 mmol/L (22-30); Chloride 100 mmol/L (98-107); Glucose 133 mg/dl (70-99); Phosphorus 3.5 mg/dl (2.5-4.5); Potassium 4.2 mmol/L (3.5-5.1); Sodium 137 mmol/L (135-145)
== END ==
LOC: REG 13:33
PROVIDERS: ATTENDING PHYSICIAN Specialist; FAMILY PHYSICIAN Family Medicine
DX: I10 Essential (primary) hypertension (principal); E87.5 Hyperkalemia
CPT/HCPCS: 36415; 80069

== ENCOUNTER → 2024-09-04 12:46 | Outpatient (REF) | payer MEDICARE, OTHER, SELFPAY ==
[2024-09-04 13:32] LABS: % Basophils 1.4 % (0-2); % Immature Granulocytes 0.2 % (0-0.5); % Lymphocytes 28.9 % (20.5-51.1); % Monocytes 8.8 % (1.7-9.3); % Neutrophils 58.7 % (42.2-75.2); Absolute Basophils 0.1 10^3/uL (0-0.2); Absolute Eosinophils 0.1 10^3/uL (0-0.7); Absolute Lymphocytes 1.4 10^3/uL (1.2-3.4); Absolute Monocytes 0.4 10^3/uL (0.1-0.6); Absolute Neutrophils 2.9 10^3/uL (1.4-6.5); Hematocrit 38.4 % (37.0-47.0); Hemoglobin 12.8 g/dL (12.0-16.0); Mean Corp Hgb Conc. 33.3 g/dL (33.0-37.0); Mean Corpuscular Hgb 29.9 pg (27.0-31.0); Mean Corpuscular Volume 89.7 fL (81.0-99.0); Mean Platelet Volume 10.1 fL (7.4-10.4); Nucleated Red Blood Cells % 0 %; Platelet Count 254 10^3/uL (130-400); Red Blood Cell Count 4.28 10^6/uL (4.20-5.40); Red Cell Dist. Width 12.6 % (11.5-14.5); White Blood Cell Count 4.9 10^3/uL (4.8-10.8)
[2024-09-04 14:03] LABS: ALT (SGPT) 17 U/L (0-35); AST (SGOT) 26 U/L (14-36); Albumin 4.6 g/dl (3.5-5.0); Alkaline Phosphatase 72 U/L (38-126); Blood Urea Nitrogen 28 mg/dl (7-17); Calcium 11.2 mg/dl (8.4-10.2); Carbon Dioxide 31 mmol/L (22-30); Chloride 101 mmol/L (98-107); Glucose 93 mg/dl (70-99); HDL Cholesterol 67 mg/dl; LDL Cholesterol, Calculated 54 mg/dl; Potassium 4.4 mmol/L (3.5-5.1); Sodium 139 mmol/L (135-145); Total Bilirubin 0.7 mg/dl (0.2-1.3); Total Cholesterol 134 mg/dl (50-199); Total Protein 6.9 g/dl (6.3-8.2); Triglyceride 66 mg/dl (10-149); Very Low Density Lipoprotein 13 mg/dl (0-30); eGFR > 60.00
[2024-09-06 10:50] LABS: Intact PTH 24.1 pg/ml (13.6-85.8)
== END ==
LOC: REG 12:46
PROVIDERS: ATTENDING PHYSICIAN Physician Assistant
DX: E83.52 Hypercalcemia (principal); E78.5 Hyperlipidemia, unspecified; I10 Essential (primary) hypertension
CPT/HCPCS: 36415; 80053; 80061; 83970; 85025

== ENCOUNTER → 2024-09-10 07:18 | Outpatient (REF) | payer MEDICARE, OTHER, SELFPAY ==
[2024-09-10 08:05] LABS: % Basophils 1.5 % (0-2); % Eosinophils 1.7 % (0-6); % Immature Granulocytes 0.4 % (0-0.5); % Lymphocytes 21.9 % (20.5-51.1); % Monocytes 7.6 % (1.7-9.3); % Neutrophils 66.9 % (42.2-75.2); Absolute Basophils 0.1 10^3/uL (0-0.2); Absolute Eosinophils 0.1 10^3/uL (0-0.7); Absolute Lymphocytes 1.2 10^3/uL (1.2-3.4); Absolute Monocytes 0.4 10^3/uL (0.1-0.6); Absolute Neutrophils 3.5 10^3/uL (1.4-6.5); Hematocrit 38.7 % (37.0-47.0); Hemoglobin 12.9 g/dL (12.0-16.0); Mean Corp Hgb Conc. 33.3 g/dL (33.0-37.0); Mean Corpuscular Hgb 30.1 pg (27.0-31.0); Mean Corpuscular Volume 90.2 fL (81.0-99.0); Mean Platelet Volume 9.5 fL (7.4-10.4); Nucleated Red Blood Cells % 0 %; Platelet Count 276 10^3/uL (130-400); Red Blood Cell Count 4.29 10^6/uL (4.20-5.40); Red Cell Dist. Width 12.7 % (11.5-14.5); White Blood Cell Count 5.3 10^3/uL (4.8-10.8)
[2024-09-10 09:10] LABS: ALT (SGPT) 21 U/L (0-35); AST (SGOT) 30 U/L (14-36); Albumin 4.6 g/dl (3.5-5.0); Alkaline Phosphatase 78 U/L (38-126); Blood Urea Nitrogen 27 mg/dl (7-17); Calcium 10.7 mg/dl (8.4-10.2); Carbon Dioxide 28 mmol/L (22-30); Chloride 102 mmol/L (98-107); Glucose 95 mg/dl (70-99); HDL Cholesterol 65 mg/dl; LDL Cholesterol, Calculated 53 mg/dl; Potassium 4.8 mmol/L (3.5-5.1); Sodium 140 mmol/L (135-145); Total Bilirubin 0.9 mg/dl (0.2-1.3); Total Cholesterol 132 mg/dl (50-199); Total Protein 6.9 g/dl (6.3-8.2); Triglyceride 74 mg/dl (10-149); Very Low Density Lipoprotein 14 mg/dl (0-30)
[2024-09-10 11:23] LABS: Intact PTH 44.1 pg/ml (13.6-85.8)
== END ==
LOC: REG 07:18
PROVIDERS: ATTENDING PHYSICIAN Physician Assistant; FAMILY PHYSICIAN Physician Assistant; REFERRING PHYSICIAN Specialist
DX: E83.52 Hypercalcemia (principal); I10 Essential (primary) hypertension; E78.5 Hyperlipidemia, unspecified
CPT/HCPCS: 36415; 80053; 80061; 83970; 85025

== ENCOUNTER 2024-10-27 14:45 | Outpatient (RCR) | payer MEDICARE, OTHER, SELFPAY | END 2024-10-27 23:59 | disposition home or self-care (01) | LOC: RST 14:45 | PROVIDERS: ATTENDING PHYSICIAN Physician Assistant | DX: I69.310 Attention and concentration deficit following cerebral infarction (principal); I69.311 Memory deficit following cerebral infarction; I69.318 Other symptoms and signs involving cognitive functions following cerebral infarction; I69.392 Facial weakness following cerebral infarction; Z73.6 Limitation of activities due to disability | CPT/HCPCS: 96125; 97129; 97130 ==

== ENCOUNTER → 2024-11-04 11:29 | Outpatient (REF) | payer MEDICARE, OTHER, SELFPAY | LOC: DHSLP 11:29 | PROVIDERS: ATTENDING PHYSICIAN Psychiatry & Neurology Neurology; FAMILY PHYSICIAN Physician Assistant | DX: G47.33 Obstructive sleep apnea (adult) (pediatric) (principal) | CPT/HCPCS: 95800 ==

== ENCOUNTER 2024-11-28 12:21 | Outpatient (RCR) | payer MEDICARE, OTHER, SELFPAY | END 2024-11-28 23:59 | disposition home or self-care (01) | LOC: ROT 12:21 | PROVIDERS: ATTENDING PHYSICIAN Physician Assistant | DX: I69.310 Attention and concentration deficit following cerebral infarction (principal); I69.311 Memory deficit following cerebral infarction; I69.318 Other symptoms and signs involving cognitive functions following cerebral infarction; I69.392 Facial weakness following cerebral infarction; Z73.6 Limitation of activities due to disability | CPT/HCPCS: 97110; 97112; 97116; 97129; 97130; 97163; 97167; 97530; 97535 ==

== ENCOUNTER 2024-12-26 13:30 | Outpatient (RCR) | payer MEDICARE, OTHER, SELFPAY | END 2024-12-26 23:59 | disposition home or self-care (01) | LOC: ROT 13:30 | PROVIDERS: ATTENDING PHYSICIAN Physician Assistant | DX: I69.310 Attention and concentration deficit following cerebral infarction (principal); I69.311 Memory deficit following cerebral infarction; I69.318 Other symptoms and signs involving cognitive functions following cerebral infarction; I69.392 Facial weakness following cerebral infarction; Z73.6 Limitation of activities due to disability; I69.354 Hemiplegia and hemiparesis following cerebral infarction affecting left non-dominant side; M48.00 Spinal stenosis, site unspecified; R26.89 Other abnormalities of gait and mobility; R29.818 Other symptoms and signs involving the nervous system | CPT/HCPCS: 97110; 97112; 97116; 97129; 97130; 97530; 97535; 97537 ==

== ENCOUNTER 2025-01-27 09:19 | Outpatient (RCR) | payer MEDICARE, OTHER, SELFPAY | END 2025-01-27 23:59 | disposition home or self-care (01) | LOC: ROT 09:19 | PROVIDERS: ATTENDING PHYSICIAN Physician Assistant | DX: I63.449 Cerebral infarction due to embolism of unspecified cerebellar artery (principal); I69.311 Memory deficit following cerebral infarction; I69.310 Attention and concentration deficit following cerebral infarction; I69.318 Other symptoms and signs involving cognitive functions following cerebral infarction; I69.392 Facial weakness following cerebral infarction; Z73.6 Limitation of activities due to disability | CPT/HCPCS: 97129; 97130; 97530; 97535 ==

== ENCOUNTER 2025-02-27 10:31 | Outpatient (RCR) | payer MEDICARE, OTHER, SELFPAY | END 2025-02-27 23:59 | disposition home or self-care (01) | LOC: ROT 10:31 | PROVIDERS: ATTENDING PHYSICIAN Physician Assistant | DX: I69.310 Attention and concentration deficit following cerebral infarction (principal); I69.311 Memory deficit following cerebral infarction; I69.318 Other symptoms and signs involving cognitive functions following cerebral infarction; I69.392 Facial weakness following cerebral infarction; Z73.6 Limitation of activities due to disability | CPT/HCPCS: 97129; 97130; 97530; 97535; 97537 ==

== ENCOUNTER → 2025-03-11 09:59 | Outpatient (REF) | payer MEDICARE, OTHER, SELFPAY ==
[2025-03-11 11:49] LABS: Hematocrit 42.4 % (37.0-47.0); Hemoglobin 14.1 g/dL (12.0-16.0); Mean Corp Hgb Conc. 33.3 g/dL (33.0-37.0); Mean Corpuscular Volume 91.6 fL (81.0-99.0); Nucleated Red Blood Cells % 0 %; Platelet Count 277 10^3/uL (130-400); Red Cell Dist. Width 12.5 % (11.5-14.5)
[2025-03-11 12:05] LABS: ALT (SGPT) 28 U/L (0-35); AST (SGOT) 29 U/L (14-36); Albumin 4.7 g/dl (3.5-5.0); Alkaline Phosphatase 92 U/L (38-126); Blood Urea Nitrogen 24 mg/dl (7-17); Calcium 10.3 mg/dl (8.4-10.2); Carbon Dioxide 29 mmol/L (22-30); Chloride 105 mmol/L (98-107); Glucose 76 mg/dl (70-99); HDL Cholesterol 69 mg/dl; LDL Cholesterol, Calculated 66 mg/dl; Sodium 142 mmol/L (135-145); Total Protein 7.2 g/dl (6.3-8.2); Very Low Density Lipoprotein 13 mg/dl (0-30); eGFR 55.90
[2025-03-11 12:16] LABS: Potassium 4.7 mmol/L (3.5-5.1)
== END ==
LOC: REG 09:59
PROVIDERS: ATTENDING PHYSICIAN Physician Assistant; FAMILY PHYSICIAN Family Medicine
DX: I35.1 Nonrheumatic aortic (valve) insufficiency (principal); E78.5 Hyperlipidemia, unspecified; I10 Essential (primary) hypertension; E66.9 Obesity, unspecified
CPT/HCPCS: 36415; 80053; 80061; 85025

== ENCOUNTER 2025-03-31 09:34 | Outpatient (RCR) | payer MEDICARE, OTHER, SELFPAY | END 2025-03-31 23:59 | disposition home or self-care (01) | LOC: ROT 09:34 | PROVIDERS: ATTENDING PHYSICIAN Physician Assistant | DX: I69.310 Attention and concentration deficit following cerebral infarction (principal); I63.449 Cerebral infarction due to embolism of unspecified cerebellar artery (principal); I69.311 Memory deficit following cerebral infarction; I69.318 Other symptoms and signs involving cognitive functions following cerebral infarction; I69.392 Facial weakness following cerebral infarction; Z73.6 Limitation of activities due to disability | CPT/HCPCS: 97129; 97130; 97530; 97535; 97537 ==

== ENCOUNTER 2025-04-02 08:35 | Outpatient (RCR) | payer MEDICARE, OTHER, SELFPAY | END 2025-04-02 23:59 | disposition home or self-care (01) | LOC: ROT 08:35 | PROVIDERS: ATTENDING PHYSICIAN Physician Assistant | DX: I69.310 Attention and concentration deficit following cerebral infarction (principal); I69.311 Memory deficit following cerebral infarction; I69.318 Other symptoms and signs involving cognitive functions following cerebral infarction; I69.392 Facial weakness following cerebral infarction; Z73.6 Limitation of activities due to disability; I63.449 Cerebral infarction due to embolism of unspecified cerebellar artery | CPT/HCPCS: 97129; 97130; 97530 ==